=== PATIENT | male | born 1960 | race Caucasian/White ===

== ENCOUNTER → 2018-02-02 | Outpatient (CLI) | payer OTHER ==
[~2018-02-02] MED LIST: BNC20 PO; CRS20 PO; OMEG120013 PO; ZLF/50 PO
[2018-02-06 05:48] LABS: BETA-2-MICROGLOBULIN 852 2.52 MG/L (0.00-2.51)
== END | disposition home or self-care (01) ==
LOC: C.LABSPEC 14:24
PROVIDERS: ATTEND Internal Medicine Hematology & Oncology
DX: D47.2 Monoclonal gammopathy (principal)